=== PATIENT | female | born 1955 | race Caucasian/White ===

== ENCOUNTER 2017-07-27 06:47 | Inpatient (IN) ==
--- NOTE | 2017-07-26 23:09 | Discharge Summary ---
<Olya Palmer L - Last Filed: 07/26/17 23:05> Orders not resulted at time of discharge: Pending orders 07/27/17 00:01 XR knee BI 1-2V [XR] Routine H/H [Hemoglobin and Hematocrit] [HEME] Routine Date of Encounter: 07/26/17 - Discharge Diagnosis (1) Arthritis of both knees Priority: Primary Status: Acute (2) Status post total bilateral knee replacement Priority: Primary Status: Acute (3) Pacemaker Priority: Secondary Status: Chronic (4) HTN (hypertension) Priority: Secondary Status: Chronic Qualifiers: Hypertension type: essential hypertension Qualified Code(s): I10 - Essential (primary) hypertension (5) DMII (diabetes mellitus, type 2) Priority: Secondary Status: Chronic Qualifiers: Diabetes mellitus vermin exterminator insulin use: unspecified senior living insulin use status Diabetes mellitus complication status: with unspecified complications Qualified Code(s): E11.8 - Type 2 diabetes mellitus with unspecified complications (6) DAVID on CPAP Priority: Secondary Status: Chronic (7) Hypothyroid Priority: Secondary Status: Chronic Qualifiers: Hypothyroidism type: unspecified Qualified Code(s): E03.9 - Hypothyroidism , unspecified - Hospital Course Hospital course: Ms. Bradley is a 62 year old female - Time Spent with Patient Total time spent providing and/or coordinating discharge services: - Discharge Medications Home Medications: Levothyroxine Sodium [Levoxyl] 125 mcg PO DAILY 04/02/17 [History] Linagliptin/Metformin HCl [Jentadueto 2.5 mg-1000 mg Tab] 1 each PO DAILY [History] Metoprolol [Lopressor] 25 mg PO DAILY 04/02/17 [History] Ropinirole HCl [Requip] 4 mg PO DAILY 04/02/17 [History] Furosemide [Lasix] 20 mg PO DAILY 06/09/17 [History] Omeprazole [PriLOSEC] 40 mg PO DAILY 06/09/17 [History] Potassium Chloride [K-Tab ER] 20 meq PO DAILY 06/09/17 [History] Aspirin Enteric Coated [Aspirin EC] 325 mg PO BID #20 tablet. 07/26/17 [Rx] OxyCODONE Immed Rel [Roxicodone 5 MG] 5 mg PO Q6HR PRN 7 Days #28 tablet 05/06/ 18 [Rx] Beclomethasone Diprop 80mcg [QVAR 80 mcg] 1 puff IH DAILY 07/27/17 [History] Subcutaneous Insulin Pump [T:Slim] 0 unit MC DAILY PRN MDD HUMALOG 07/27/17 [ History] Allergies/Adverse Reactions: 3 Allergy/AdvReac Type Severity Reaction Status Date / Time ampicillin Allergy Hives Verified 07/27/17 07:19 propoxyphene Allergy Hives Verified 07/27/17 07:19 [From James] Primary care physician: Pam Hoang - Patient Status Disposition: Transfer Inpatient Rehab Fac Condition: Good - Discharge Instructions Follow Up With: Pam Hoang [Primary Care Provider] - <Jose Maria Gomes - Last Filed: 07/29/17 06:42> Orders not resulted at time of discharge: Pending orders 07/27/17 00:01 XR knee BI 1-2V [XR] Routine H/H [Hemoglobin and Hematocrit] [HEME] Routine Date of Encounter: 07/29/17 Time of Encounter: 06:42 - Discharge Diagnosis (1) Obesity (BMI 35.0-39.9 without comorbidity) Priority: Secondary Status: Chronic (2) Arthritis of both knees Priority: Primary Status: Chronic (3) Status post total bilateral knee replacement Priority: Primary Status: Acute (4) Pacemaker Priority: Secondary Status: Chronic (5) HTN (hypertension) Priority: Secondary Status: Chronic Qualifiers: Hypertension type: essential hypertension Qualified Code(s): I10 - Essential (primary) hypertension (6) DMII (diabetes mellitus, type 2) Priority: Secondary Status: Chronic Qualifiers: Diabetes mellitus senior living insulin use: unspecified vermin exterminator insulin use status Diabetes mellitus complication status: with unspecified complications Qualified Code(s): E11.8 - Type 2 diabetes mellitus with unspecified complications (7) DAVID on CPAP Priority: Secondary Status: Chronic (8) Hypothyroid Priority: Secondary Status: Chronic Qualifiers: Hypothyroidism type: unspecified Qualified Code(s): E03.9 - Hypothyroidism , unspecified (9) Acute blood loss anemia Priority: Primary Status: Acute - Hospital Course Hospital course: Ms. Bradley is a 62 year old female Status post bilateral total knee replacement. Patient with acute blood loss anemia received 2 units, discharge hematocrit 33 The patient had an uneventful postoperative course. They received antibiotics and physical therapy and were discharged in stable condition. There will follow -up in the office in 2 weeks. - Time Spent with Patient Total time spent providing and/or coordinating discharge services: Primary care physician: Pam Hoang - Patient Status Functional capacity at discharge: uses cane/walker Overall status at discharge: patient is progressing back to baseline
--- NOTE | 2017-07-27 06:50 | History & Physical Report ---
Date of Encounter: 07/27/17 Time of Encounter: 06:50 24 Hour HP Update - Instructions Instructions: If the History and Physical is less than 30 days old and was completed prior to A.M. admission and or procedure and has NOT been updated on calendar day of procedure please complete this update prior to performing procedure. - Update Patient reports changes in Medical Condition: No Changes in examination, assessment, or condition: No Changes in Medication: No Preop tests/diagnostics Reviewed: Yes Surgery Remains Indicated: Yes Consent for Planned Operative Procedure(s) Verified: Yes - Pre-Operative Checklist Preoperative Checklist Indicated: No Prophylactic Antibiotic Ordered: Yes Is VTE Prophylaxis Indicated?: Yes
[2017-07-27] MEDS ORDERED: *HR* FentaNYL (PF) 100 MCG/2 ML VIAL ONE (07:10)
[2017-07-27] MEDS ORDERED: Ketorolac 30 MG/ML VIAL ONE (07:10)
[2017-07-27] MEDS ORDERED: *HR* Propofol 200 MG/20 ML VIAL IVP ONE ×2 (07:10→10:24)
[2017-07-27] MEDS ORDERED: Ondansetron 4 MG/2 ML VIAL ONE (07:10)
[2017-07-27] MEDS ORDERED: *HR* Midazolam HCl 2 MG/2 ML VIAL ONE (07:10)
[2017-07-27] MEDS ORDERED: Lidocaine -MPF 2% 2 ML VIAL ONE (07:10)
[2017-07-27] MEDS ORDERED: Dexamethasone 4 MG/ML VIAL ONE (07:10)
[2017-07-27] MEDS ORDERED: *HR* Succinylcholine 200 MG/10 ML VIAL IVP ONE (07:10)
[2017-07-27] MEDS ORDERED: Lidocaine -MPF 4% 5 ML AMPUL ONE (07:10)
[2017-07-27] MEDS ORDERED: Propofol 500 MG/50 ML INFUS..BTL ONE ×2 (07:14→09:30)
[2017-07-27] MEDS ORDERED: CeFAZolin Syr 2,000MG/20 ML 2,000 MG/20 ML SYRINGE IVPB ONE (07:29)
[2017-07-27] MEDS ORDERED: Ringers Solution, Lactated 1,000 ML IVC SCH ×2 (07:30→11:56)
[2017-07-27] MEDS ORDERED: Ethanol\\Acetic Acid\\Na Ace\\Ben 1,000 ML IRRIG.SOLN IR ONE (07:34)
[2017-07-27] MEDS ORDERED: Famotidine 20 MG/2 ML VIAL IVP ONE (07:56)
[2017-07-27] MEDS ORDERED: Pregabalin 75 MG CAPSULE PO ONE (07:57)
--- NOTE | 2017-07-27 08:00 | Anesthesia Evaluation PreOp ---
Date of Encounter: 07/27/17 Time of Encounter: 08:00 - Past History Planned Operation: Bilatera TKA Cardiac History: HTN, Hyperlipidemia, Arrhythmia (Sick Sinus), Pacemaker/ICD ( 2016) Pulmonary History: DAVID Dx APPLICATIONS SALES REPRESENTATIVE History: Denies Any Significant HX Other Medical History: Diabetes Type II, Thyroid, Other (Morbid Obesity) Anesthesia History: No Prior Anesthetic Complications : No Alcohol Use: none Drug use: none Medications and Allergies Levothyroxine Sodium [Levoxyl] 125 mcg PO DAILY 04/02/17 [History] Linagliptin/Metformin HCl [Jentadueto 2.5 mg-1000 mg Tab] 1 each PO DAILY [History] Metoprolol [Lopressor] 25 mg PO DAILY 04/02/17 [History] Ropinirole HCl [Requip] 4 mg PO DAILY 04/02/17 [History] Furosemide [Lasix] 20 mg PO DAILY 06/09/17 [History] Omeprazole [PriLOSEC] 40 mg PO DAILY 06/09/17 [History] Potassium Chloride [K-Tab ER] 20 meq PO DAILY 06/09/17 [History] Aspirin Enteric Coated [Aspirin EC] 325 mg PO BID #20 tablet. 07/26/17 [Rx] OxyCODONE Immed Rel [Roxicodone 5 MG] 5 mg PO Q6HR PRN 7 Days #28 tablet [Rx] Beclomethasone Diprop 80mcg [QVAR 80 mcg] 1 puff IH DAILY 07/27/17 [History] Subcutaneous Insulin Pump [T:Slim] 0 unit MC DAILY PRN MDD HUMALOG 07/27/17 [ History] 3 Allergy/AdvReac Type Severity Reaction Status Date / Time ampicillin Allergy Hives Verified 07/27/17 07:19 propoxyphene Allergy Hives Verified 07/27/17 07:19 [From James] - Meds/Allergy Pre-op Review Medications Reviewed: Yes Allergies Reviewed: Yes Beta Blockers on Current Med List: Yes (Metoprolol today 0530) Anesthesia Results - Labs Laboratory Tests 07/20/17 07/20/17 07/20/17 11:45 11:45 11:45 Hgb 13.8 Hct 42.3 Plt Count 346 PT 10.6 INR 1.0 APTT 31.2 Sodium 136 Potassium 3.9 BUN 16 Creatinine 0.88 - Imaging EKG: report reviewed Anesthesia Exam O2 Sat Height 1.65 m Height 1.65 m Height 1.65 m Weight 107.955 kg Weight 107.955 kg Weight 107.955 kg O2 Sat by Pulse Oximetry 95 Vital Signs Temp Pulse Resp BP Pulse Ox 98.2 F 78 18 105/64 95 07/27/17 07:25 07/27/17 07:25 07/27/17 07:25 07/27/17 07:25 07/27/17 07:25 Height: 5'5 Weight: 238 lbs NPO (# of Hours): MN Pain Scale: 0 - HEENT Pupil (Motor): Pupils equal, EOMI Mallampati: III Oral Opening: Less than or equal to 3 - APPLICATIONS SALES REPRESENTATIVE LOC: Oriented APPLICATIONS SALES REPRESENTATIVE Motor: Normal RUE, Normal LUE, Normal RLE, Normal LLE, Normal Face APPLICATIONS SALES REPRESENTATIVE Sensory: Normal: RUE, LUE, RLE, LLE, Face - Cardiac Rhythm: Regular Murmur: None JVD: No Carotid Bruit: No - Pulmonary Breath Sounds: bilateral Clear Respiratory Effort: Symmetrical Anesthesia Assess/Plan ASA Score: 3 (HTN DM Pacemaker) Modified Alba Scale for Level of Consciousness: Cooperative, oriented, and tranquil Anesthetic Plan: General, Regional, MAC Monitoring Plan: Standard Monitors Recovery Plan: PACU (Discussed SAB with Adductor Canal Blocks, possible GA, agrees to proceed)
[2017-07-27] MEDS ORDERED: ROPIVACAINE HCL/PF 0.5% 30 ML VIAL ONE (08:11)
[2017-07-27] MEDS ORDERED: Dexmedetomidine HCl 200 MCG/50 ML MLS IVC ONE (08:15)
--- NOTE | 2017-07-27 08:47 | Anesthesia Procedures ---
Date of Encounter: 07/27/17 Time of Encounter: 07:58 Procedures: Anesthesia - Epidural/Spinal Patient ID/Chart reviewed: Yes Patient examined: Yes Consent Obtained: Yes Supplemental Oxygen: Nasal Cannula (2) Supplemental Oxygen Rate (L/min): 2 Sedation: Versed (mg): 2 Site Prep: Aseptic Technique, Sterile prep and drape Patient position: upright Local Anesthetic: Lidocaine 1% Interspace Used: L3-L4 Loss of Resistance (REGINA): No Blood: No CSF: Yes Paresthesia: No Spinal Needle Gauge: 24 Spinal Dose: Bupivacaine 10mg isobaric, duramorph 0.3mg Procedure: Patient sitting, monitors placed, sterile prep midline L3-4, 24 gauge needle, plus csf 10 mg marcaine with duramorph 0.3mh patient tolerated procedure well - Nerve Block Procedure Date: 07/27/17 Time: 08:15 Pre-op Diagnosis: Bilateral Knee Arthritis Surgical Procedure: Bilateral TKA Checklist: Correct Patient Identifier Blood Thinner: No Monitor Applied: EKG, BP, Pulse Oximetry Supplemental Oxygen via Nasal Cannula (L/min): 2 Sedation: Versed (mg): 2 Indication: Post Op Analgesia Pre-op Neuro Deficits: No Block Type: Other (Adductor Canal Blocks) Catheter placed: No Depth at skin (cm): 3 Sterile Technique: Yes Ultrasound used: Yes Anatomy identified: Yes Visual spread of Local: Yes Neuro Stimulation: No Blood on Needle Aspiration: No Smooth Injection of Local: Yes Pain with Injection of Local: No Prep: Chlorhexadine Needle: 22 x 50 mm Stimuplex Local: Ropivacaine, Other (Precedex 20micrograms) Volume (cc): 20cc each side Number of Attempts: 1 Complications: None/effective block Vitals: Vital Signs/O2 Sat/Glucose, Most Current Temp Pulse Resp BP Pulse Ox 07/27/17 08:42 74 115/74 98 07/27/17 08:28 74 108/63 97 07/27/17 08:23 73 100/63 94 07/27/17 07:25 98.2 F 78 18 105/64 95
[2017-07-27] MEDS ORDERED: *HR* PHENYLEPHRINE 1,000 MCG/10 ML SYRINGE IVP ONE (09:01)
[2017-07-27] MEDS ORDERED: *HR* Phenylephrine 10 MG/ML VIAL ONE (09:07)
[2017-07-27] MEDS ORDERED: *HR* OxyCODONE/APAP 5/325 TABLET PO PRN (09:34)
[2017-07-27] MEDS ORDERED: Ondansetron 4 MG/2 ML VIAL IVP PRN (09:34)
--- NOTE | 2017-07-27 10:25 | Orthopedic Operative Note ---
Date of procedure: 07/27/17 Pre-op diagnosis: Lateral knee arthritis Post-op diagnosis: same Procedure: Procedure: Bi lateral robotic-assisted Total knee replacement Estimated blood loss: 200 cc Hardware: Metal and polyethylene replacement. Brooke Femur:4 Tibia:4 TS insert: 11 Patella: 36 Exam Under anesthesia: Both knees 1 degree flexion contracture 1 degree varus as calculated by the robot full flexion and no instability Procedural Notes: Grade 4 arthritic changes all 3 compartments. Operative procedure: The patient was brought to the operating room and placed on the operating room table. After general anesthesia was administered the operative knee was examined. Findings were noted in the exam under anesthesia. Surgery began with the left knee followed by the right knee followed be a dictation for both knees any differences will be highlighted. The operative extremity was prepped and draped in sterile surgical fashion. The patient received IV antibiotics prior to skin incision. A standard midline incision was made centered over the patella. The incision was made through the skin and subcutaneous tissue. A medial parapatellar tendon approach was performed. Care was taken to preserve tissue along the medial aspect of the patella. And to protect the patella tendon. The deep MCL was released off the medial tibia. The infra patella fat pad was excised. The patella was everted and cut was made at the level of the insertion of the quadriceps and patella tendon. The patella was sized the guide was seated and the lug holes are drilled. Knee was brought into flexion. Patient noted to have grade 4 arthritic changes all 3 compartments both knees. Steinmann pins were placed in the tibia and the femur for the tibial and femoral arrays respectively. Checkpoints were also placed in the tibia and the femur for calculation purposes. The knee including the femur and the tibial registered. Osteophytes, ACL and PCL were excised at this point. Extension and flexion were assessed with a valgus stress components were adjusted on the computer to balance the knee. Femoral cuts were made first with robotic assistance, these included the anterior cut posterior cuts chamfer cuts. Tibial cut was then performed with robotic assistance as well. Bone fragments were removed, as well as the medial and lateral meniscus. The size 4 femoral guide was seated box cut was made lug holes are drilled. The size 4 tibial tray was seated and prepared with the fin cutter. Trial reduction with the 11 TS Marta revealed extension of 0 degree and 1 degree varus full flexion. No varus valgus instability. Trial reduction revealed excellent patella tracking. All trial components were removed all bony surfaces were irrigated. The Tibia was seated followed by the femur, The Marta size 11 was seated and secured patella. Patient had similar findings for motion and stability. The knee was closed by the PA. The knee was then irrigated out with 2 L of pulse irrigation. The extensor mechanism was closed with #2 FiberWire suture and #2 PDS suture. The subcutaneous tissue was then irrigated and closed deep with #1 PDS suture superficially with 0 PDS suture and skin was closed with zip tie The patient was then placed in a sterile dressing and a postoperative brace extubated and transferred to recovery room in stable condition. Anesthesia: spinal Surgeon: Jose Maria Gomes Was there an hospital medical assistant present: Yes Supervisor Mill: Sana Kay Estimated blood loss (cc): 400 Condition: stable Disposition: PACU
--- NOTE | 2017-07-27 11:46 | Anesthesia Evaluation Post Op ---
Date of Encounter: 07/27/17 Time of Encounter: 11:50 - Vital Signs Vital Signs: Vital Signs/O2 Sat/Glucose, Most Current Temp Pulse Resp BP Pulse Ox 07/27/17 11:44 68 16 92/54 95 07/27/17 11:34 97.3 F L 70 16 93/59 96 07/27/17 11:24 73 20 100/60 96 07/27/17 11:14 74 20 91/63 96 07/27/17 11:04 97.9 F 81 20 104/58 92 07/27/17 08:42 74 115/74 98 07/27/17 08:28 74 108/63 97 07/27/17 08:23 73 100/63 94 - Lungs Lungs: Clear Ascult./Percussion - Airway Airway: Non-obstructed - Cardiovascular Regular Rate - Mental Status Mental Status: Alert & Oriented, Answers Appropriately - Pain Pain Scale: 0 - Nausea Vomiting Nausea Vomiting: Not Present - Hydration Hydration: Ice chips - Discharge PostOp Status: Transfer Patient to floor
[2017-07-27 11:48] LABS: Hematocrit 36.9 % (35.3-44.9)
[2017-07-27 11:51] LABS: Hemoglobin 11.8 g/dL (11.5-15.4)
[2017-07-27] MEDS ORDERED: MOM Conc 10 ML UD.LIQ PO PRN (11:56)
[2017-07-27] MEDS ORDERED: Temazepam 15 MG CAPSULE PO PRN (11:56)
[2017-07-27] MEDS ORDERED: Naloxone 0.4 MG/ML INJ IVP PRN (11:56)
[2017-07-27] MEDS ORDERED: Sennosides 8.6 MG TABLET PO PRN (11:56)
[2017-07-27] MEDS ORDERED: traMADol 50 MG TABLET PO PRN (11:56)
[2017-07-27] MEDS ORDERED: *HR* Dextrose 50 % in Water (Syg) 50 ML SYRINGE IVP PRN (11:56)
[2017-07-27] MEDS ORDERED: Dextrose Gel 15 GM/37.5 ML TUBE PO PRN ×2 (11:56)
[2017-07-27] MEDS ORDERED: D5% in Water 1,000 ML IVC PRN (11:56)
[2017-07-27] MEDS: Insulin LISPRO 300 UNITS/3 ML VIAL SQ SCH ×3 (13:57→20:14)
[2017-07-27] MEDS: Furosemide 20 MG TABLET PO SCH (13:57)
[2017-07-27] MEDS: (Linagliptin/Metformin Hcl [Jentadueto 2.5 Mg-1000 Mg) PO SCH (13:57)
[2017-07-27] MEDS: rOPINIRole 1 MG TABLET PO SCH (13:58)
--- NOTE | 2017-07-27 14:29 | Physician Discharge Referral ---
<Olya Palmer L - Last Filed: 07/27/17 14:28> ExtendedCare Referral Info Transfer To: [facility] Provider in Charge: Provider in Charge after Transfer: PCP Institutional Level of Care: Skilled - Diagnosis (1) Arthritis of both knees Priority: Primary Status: Chronic (2) Status post total bilateral knee replacement Priority: Primary Status: Acute (3) Pacemaker Priority: Secondary Status: Chronic (4) HTN (hypertension) Priority: Secondary Status: Chronic (5) DMII (diabetes mellitus, type 2) Priority: Secondary Status: Chronic (6) DAVID on CPAP Priority: Secondary Status: Chronic (7) Hypothyroid Priority: Secondary Status: Chronic Expected Duration of Placement: < 30 days Prognosis: Good Aware of Diagnosis: Patient Aware of Prognosis: Patient - Transfer Medications Home Medications: Levothyroxine Sodium [Levoxyl] 125 mcg PO DAILY 04/02/17 [History] Linagliptin/Metformin HCl [Jentadueto 2.5 mg-1000 mg Tab] 1 each PO DAILY [History] Metoprolol [Lopressor] 25 mg PO DAILY 04/02/17 [History] Ropinirole HCl [Requip] 4 mg PO DAILY 04/02/17 [History] Furosemide [Lasix] 20 mg PO DAILY 06/09/17 [History] Omeprazole [PriLOSEC] 40 mg PO DAILY 06/09/17 [History] Potassium Chloride [K-Tab ER] 20 meq PO DAILY 06/09/17 [History] Aspirin Enteric Coated [Aspirin EC] 325 mg PO BID #20 tablet. 07/26/17 [Rx] OxyCODONE Immed Rel [Roxicodone 5 MG] 5 mg PO Q6HR PRN 7 Days #28 tablet [Rx] Beclomethasone Diprop 80mcg [QVAR 80 mcg] 1 puff IH DAILY 07/27/17 [History] Subcutaneous Insulin Pump [T:Slim] 0 unit MC DAILY PRN MDD HUMALOG 07/27/17 [ History] Allergies/Adverse Reactions: 3 Allergy/AdvReac Type Severity Reaction Status Date / Time ampicillin Allergy Hives Verified 07/27/17 07:19 propoxyphene Allergy Hives Verified 07/27/17 07:19 [From Ana-Glenis] - Respiratory Orders None Smoking Cessation: Smoking cessation has been advised. For more information, call the [place] Tobacco Quit Line at 9-286-LLJZ-NOW. - Ancillary Orders May use pressure relief devices daily prn, May go on BLANCA w/family/respon alliance party w /meds at nurse discretion PRN, May consult with Dentist, Mill Tender Warm Up, Tugboat Engineer PRN - Mobility Orders Chair, Ambulate - Rehabiliation Orders Rehab Potential: Good Rehab Orders: ROM Exercises, Evaluation for Physical Therapy, Evaluation for Occupational Therapy - Treatments Skin tear care topically daily PRN per policy - Diet Orders Regular CERTIFICATION: I certify that the transfer of the above named patient to an Extended Care Facility is necessary for the continuing treatment of the diagnosis listed. The above information is true and accurate reflection of patient's current condition. Confidential - Redisclosure prohibited without a patient's written consent. <Jose Maria Gomes - Last Filed: 07/29/17 06:49> - Diagnosis (1) Obesity (BMI 35.0-39.9 without comorbidity) Status: Chronic (2) Arthritis of both knees Status: Chronic (3) Status post total bilateral knee replacement Status: Acute (4) Pacemaker Status: Chronic (5) HTN (hypertension) Status: Chronic (6) DMII (diabetes mellitus, type 2) Status: Chronic (7) DAVID on CPAP Status: Chronic (8) Hypothyroid Status: Chronic (9) Acute blood loss anemia Status: Acute - Respiratory Orders Smoking Cessation: Smoking cessation has been advised. For more information, call the [place] Tobacco Quit Line at 2-200-SBNP-NOW. CERTIFICATION: I certify that the transfer of the above named patient to an Extended Care Facility is necessary for the continuing treatment of the diagnosis listed. The above information is true and accurate reflection of patient's current condition. Confidential - Redisclosure prohibited without a patient's written consent.
[2017-07-27] MEDS: CeFAZolin Pre 2,000 MG/100 ML 2,000 MG/100 ML BAG IVPB SCH (15:54)
[2017-07-27] MEDS: Beclomethasone 80mcg MDI IH SCH (16:01)
[2017-07-27] MEDS: *HR* Enoxaparin 30 MG/0.3 ML SYRINGE SQ SCH (17:19)
[2017-07-27] MEDS ORDERED: *HR* Enoxaparin 30 MG/0.3 ML SYRINGE SQ SCH (18:00)
[2017-07-28] MEDS: CeFAZolin Pre 2,000 MG/100 ML 2,000 MG/100 ML BAG IVPB SCH (00:26)
[2017-07-28 02:21] LABS: Hematocrit 25.9 % (35.3-44.9)
[2017-07-28 02:22] LABS: Hemoglobin 8.5 g/dL (11.5-15.4)
[2017-07-28 02:47] LABS: BUN/Creatinine Ratio 23 (6-26); Blood Urea Nitrogen 23 mg/dL (8-23); Calcium 8.5 mg/dL (8.6-10.3); Carbon Dioxide 23 mEq/L (23-29); Chloride 102 mEq/L (98-107); Glucose 159 mg/dL (70-105); Osmolality,Calculated 291 (280-300); Potassium 4.3 mEq/L (3.5-5.1); Sodium 137 mEq/L (136-145); eGFR For African Americans > 60 (> 60); eGFR For Non-African Americans 55 (> 60)
[2017-07-28] MEDS: *HR* Enoxaparin 30 MG/0.3 ML SYRINGE SQ SCH ×2 (05:21→16:38)
[2017-07-28] MEDS: *HR* OxyCODONE/APAP 5/325 TABLET PO PRN ×3 (05:48→16:38)
[2017-07-28] MEDS ORDERED: Furosemide 20 MG/2 ML VIAL IVP SCH (06:17)
--- NOTE | 2017-07-28 06:17 | Orthopedics Progress Note ---
Date of Encounter: 07/28/17 Time of Encounter: 06:17 - Assessment and Plan (1) Obesity (BMI 35.0-39.9 without comorbidity) Current Visit: Yes Status: Chronic (2) Arthritis of both knees Current Visit: No Status: Chronic (3) Status post total bilateral knee replacement Current Visit: No Status: Acute (4) Pacemaker Current Visit: No Status: Chronic (5) HTN (hypertension) Current Visit: No Status: Chronic Qualifiers: Hypertension type: essential hypertension Qualified Code(s): I10 - Essential (primary) hypertension (6) DMII (diabetes mellitus, type 2) Current Visit: No Status: Chronic Qualifiers: Diabetes mellitus remote computer terminal operator insulin use: unspecified remote computer terminal operator insulin use status Diabetes mellitus complication status: with unspecified complications Qualified Code(s): E11.8 - Type 2 diabetes mellitus with unspecified complications (7) DAVID on CPAP Current Visit: No Status: Chronic (8) Hypothyroid Current Visit: No Status: Chronic Qualifiers: Hypothyroidism type: unspecified Qualified Code(s): E03.9 - Hypothyroidism , unspecified (9) Acute blood loss anemia Current Visit: Yes Status: Acute Subjective Interval history: Patient was seen this morning doing well without complaints. Afebrile vital signs stable. Operative extremity: Neurovascularly intact Dressing clean dry and intact Calves nontender Assessment and plan: Continue with postoperative care Hematocrit 25 transfuse 2 units Objective Vital signs: Vital Signs Temp Pulse Resp BP Pulse Ox 07/28/17 03:57 98.1 F 86 16 106/63 95 07/27/17 23:45 98.0 F 75 16 94/58 97 07/27/17 18:54 97.7 F 71 16 109/66 96 07/27/17 16:03 16 97 07/27/17 15:26 97.9 F 70 16 91/56 97 07/27/17 14:10 97.8 F 68 16 90/48 96 07/27/17 13:00 97.5 F L 67 16 82/53 97 07/27/17 12:21 97.5 F L 67 16 82/53 97 07/27/17 12:11 97.5 F L 67 16 82/53 97 07/27/17 12:07 97.8 F 68 19 85/53 92 07/27/17 11:44 68 16 92/54 95 07/27/17 11:34 97.3 F L 70 16 93/59 96 07/27/17 11:24 73 20 100/60 96 07/27/17 11:14 74 20 91/63 96 07/27/17 11:04 97.9 F 81 20 104/58 92 07/27/17 08:42 74 115/74 98 07/27/17 08:28 74 108/63 97 07/27/17 08:23 73 100/63 94 07/27/17 07:25 98.2 F 78 18 105/64 95 Intake and Output 07/27/17 07/27/17 07/28/17 15:59 23:59 07:59 Intake Total 140 / 140 500 / 500 300 / 300 Output Total 400 / 400 350 / 350 350 / 350 Balance -260 / -260 150 / 150 -50 / -50 Intake: IV Fluids 100 / 100 Ancef Premix 2,000 MG/100 ML 2, 100 / 100 000 mg In 100 ml @ 200 mls/hr IVPB Q8HR AMINA Rx#:[id number] Oral 140 / 140 400 / 400 300 / 300 Output: Urine 350 / 350 350 / 350 Estimated Blood Loss 400 / 400 Other: Blood Glucose* 169 323 - Labs CBC & BMP: 07/28/17 01:52 07/28/17 01:52 Labs: Abnormal lab results Hgb 8.5 g/dL (11.5-15.4) L D 07/28/17 01:52 Hct 25.9 % (35.3-44.9) L 07/28/17 01:52 Est GFR (Non-Af Amer) 55 (> 60) L 07/28/17 01:52 Glucose 159 mg/dL (70-105) H 07/28/17 01:52 POC Glucose 273 mg/dL (70-99) H 07/27/17 17:10 Calcium 8.5 mg/dL (8.6-10.3) L 07/28/17 01:52 - VTE Documentation of Mechanical Device: Venous foot pump, device Consult Discharge Plan - Plan Referrals: Pam Hoang [Primary Care Provider] -
[2017-07-28] MEDS: Furosemide 20 MG TABLET PO SCH (07:32)
[2017-07-28] MEDS: rOPINIRole 1 MG TABLET PO SCH (07:36)
[2017-07-28] MEDS: (Linagliptin/Metformin Hcl [Jentadueto 2.5 Mg-1000 Mg) PO SCH (07:36)
[2017-07-28] MEDS: Insulin LISPRO 300 UNITS/3 ML VIAL SQ SCH ×4 (07:52→20:20)
[2017-07-28] MEDS: Beclomethasone 80mcg MDI IH SCH (08:02)
[2017-07-28] MEDS ORDERED: 0.9 % Sodium Chloride 500 ML ONE (09:10)
[2017-07-28] MEDS: Ondansetron 4 MG/2 ML VIAL IVP PRN ×2 (09:42→16:48)
--- NOTE | 2017-07-28 12:10 | Event Note ---
Date of Encounter: 07/28/17 Time of Encounter: 12:09 PCR - POD#1 - Bilateral TKR Hypotension - bolus given; continue IVF - orthostatics ordered with PT Patient seen at bedside. Labs reviewed. H/H 8.5.9 - TRANSFUSED 2 UNITS 07/28 Pain control: yes Participating in PT. All questions and concerns addressed. Educated on use of incentive spirometer. Encouraged ambulation and proper hydration. Patient educated on post-operative restrictions and post-operative care. Addressed: ecf- continuity placed Discharge plan: D/c 07/29 or 07/30 once authorized to GF
[2017-07-28] MEDS ORDERED: rOPINIRole 1 MG TABLET PO SCH (21:00)
[2017-07-28] MEDS: *HR* OxyCODONE Immed Rel 5 MG TABLET PO PRN (22:27)
[2017-07-29 01:52] LABS: Hematocrit 33.6 % (35.3-44.9); Hemoglobin 10.8 g/dL (11.5-15.4)
[2017-07-29 02:09] LABS: BUN/Creatinine Ratio 17 (6-26); Blood Urea Nitrogen 12 mg/dL (8-23); Calcium 8.7 mg/dL (8.6-10.3); Carbon Dioxide 29 mEq/L (23-29); Chloride 101 mEq/L (98-107); Glucose 207 mg/dL (70-105); Osmolality,Calculated 288 (280-300); Sodium 136 mEq/L (136-145); eGFR For African Americans > 60 (> 60); eGFR For Non-African Americans > 60 (> 60)
[2017-07-29] MEDS: *HR* Enoxaparin 30 MG/0.3 ML SYRINGE SQ SCH (05:11)
--- NOTE | 2017-07-29 06:43 | Orthopedics Progress Note ---
Date of Encounter: 07/29/17 Time of Encounter: 06:43 - Assessment and Plan (1) Obesity (BMI 35.0-39.9 without comorbidity) Current Visit: Yes Status: Chronic (2) Arthritis of both knees Current Visit: No Status: Chronic (3) Status post total bilateral knee replacement Current Visit: No Status: Acute (4) Pacemaker Current Visit: No Status: Chronic (5) HTN (hypertension) Current Visit: No Status: Chronic Qualifiers: Hypertension type: essential hypertension Qualified Code(s): I10 - Essential (primary) hypertension (6) DMII (diabetes mellitus, type 2) Current Visit: No Status: Chronic Qualifiers: Diabetes mellitus local intermodal truck driver insulin use: unspecified local intermodal truck driver insulin use status Diabetes mellitus complication status: with unspecified complications Qualified Code(s): E11.8 - Type 2 diabetes mellitus with unspecified complications (7) DAVID on CPAP Current Visit: No Status: Chronic (8) Hypothyroid Current Visit: No Status: Chronic Qualifiers: Hypothyroidism type: unspecified Qualified Code(s): E03.9 - Hypothyroidism , unspecified (9) Acute blood loss anemia Current Visit: Yes Status: Acute Subjective Interval history: Patient was seen this morning doing well without complaints. Afebrile vital signs stable. Operative extremity: Neurovascularly intact Dressing clean dry and intact Calves nontender Assessment and plan: Continue with postoperative care Hematocrit 33 discharged today Objective Vital signs: Vital Signs Temp Pulse Resp BP Pulse Ox 07/29/17 04:27 99.1 F 102 16 149/82 96 07/28/17 23:39 98.7 F 97 16 151/82 97 07/28/17 19:16 98.4 F 97 16 167/81 97 07/28/17 16:49 98.0 F 80 14 110/64 97 07/28/17 15:15 98.0 F 86 18 124/73 98 07/28/17 14:30 98.3 F 79 14 121/72 98 07/28/17 14:01 97.4 F L 78 14 107/65 99 07/28/17 12:15 97.5 F L 83 14 124/70 97 07/28/17 11:46 98.2 F 83 14 97/58 95 07/28/17 09:38 98.0 F 88 14 99/61 99 07/28/17 09:13 98.5 F 87 14 101/62 98 07/28/17 09:12 90 07/28/17 08:45 86 110/68 07/28/17 08:37 83/43 07/28/17 08:31 69 67/37 07/28/17 08:05 18 96 07/28/17 07:41 98.8 F 86 18 116/67 96 Intake and Output 07/28/17 07/28/17 07/29/17 15:59 23:59 07:59 Intake Total 685 / 685 550 / 550 50 / 50 Balance 685 / 685 550 / 550 50 / 50 Intake: IV Fluids 25 / 25 0.9 % Sodium Chloride 500 ML @ 25 / 25 0 mls/hr .ROUTE .STK-MED ONE Rx #:[id number] Oral 360 / 360 250 / 250 50 / 50 Blood Product 300 / 300 300 / 300 Rbcs Leuko Poor As-1 Unit 300 / 300 [id number] Rbcs Leuko Poor As-1 Unit 0 / 0 300 / 300 [id number] Other: Meal Breakfast Percent of Meal Consumed 100% # Voids 2 1 1 Blood Glucose* 196 214 - Labs CBC & BMP: 07/29/17 01:19 07/29/17 01:19 Labs: Abnormal lab results Hgb 10.8 g/dL (11.5-15.4) L D 07/29/17 01:19 Hct 33.6 % (35.3-44.9) L 07/29/17 01:19 Glucose 207 mg/dL (70-105) H 07/29/17 01:19 POC Glucose 214 mg/dL (70-99) H 07/28/17 20:13 - VTE Documentation of Mechanical Device: Venous foot pump, device Consult Discharge Plan - Plan Referrals: Pam Hoang [Primary Care Provider] -
[2017-07-29] MEDS: *HR* OxyCODONE Immed Rel 5 MG TABLET PO PRN (07:19)
[2017-07-29] MEDS: Furosemide 20 MG TABLET PO SCH (07:19)
[2017-07-29] MEDS: (Linagliptin/Metformin Hcl [Jentadueto 2.5 Mg-1000 Mg) PO SCH (07:20)
[2017-07-29] MEDS: Insulin LISPRO 300 UNITS/3 ML VIAL SQ SCH (07:20)
[2017-07-29 07:21] VITALS: BP 173/79
[2017-07-29] MEDS: Beclomethasone 80mcg MDI IH SCH (07:51)
== END 2017-07-29 09:40 | DRG 462 ==
LOC: SAMDAY 06:47 → 3NENU 11:56
PROVIDERS: ADMIT Orthopaedic Surgery; ATTEND Orthopaedic Surgery